=== PATIENT | female | born 1995 | race Caucasian/White ===

== ENCOUNTER 2017-04-21 23:05 | Emergency (ER) | payer OTHER ==
[~2017-04-21] VITALS: Ht 165.1 cm; Wt 54.0 kg
[2017-04-21 23:17] VITALS: BP 123/87; PULSE 76; RESP 14; TEMP 98.1; O2SAT 98
[2017-04-21] MEDS ORDERED: TYLE325T PO (23:28)
[2017-04-21] MEDS ORDERED: SODIUM CHLOR 0.9% 1000 ML INJ 1,000 ML IV ONE (23:45)
[2017-04-21] MEDS ORDERED: SODIUM CHLORIDE 0.9% FLUSH 10 ML FLUSH IVF PRN (23:45)
[2017-04-21] MEDS ORDERED: KETOROLAC TROMETHAMINE 30 MG/ML (IVP) VIAL IV PUSH ONE (23:45)
[2017-04-22 00:08] LABS: AUTOMATED NEUTROPHIL # 4.5 TH/MM3 (1.8-7.7); BASOPHIL # 0.1 TH/MM3 (0-0.2); BASOPHIL % 0.9 % (0.0-2.0); EOSINOPHIL # 0.1 TH/MM3 (0-0.4); EOSINOPHIL % 1.4 % (0.0-4.0); HEMATOCRIT 36.5 % (35.0-46.0); HEMO FLAGS DIFF FINAL; LYMPH % 44.4 % (9.0-44.0); LYMPHOCYTE # 4.3 TH/MM3 (1.0-4.8); MEAN CELL VOLUME 83.8 FL (80.0-100.0); MEAN CORPUSCULAR HEMOGLOBIN 28.5 PG (27.0-34.0); MONO % 5.9 % (0.0-8.0); NEUT % 47.4 % (16.0-70.0); PLATELET COUNT 322 TH/MM3 (150-450); RED BLOOD COUNT 4.35 MIL/MM3 (4.00-5.30); RED CELL DISTRIBUTION WIDTH 13.3 % (11.6-17.2); WHITE BLOOD COUNT 9.6 TH/MM3 (4.0-11.0)
[2017-04-22 00:13] LABS: BLOOD, URINE TRACE (NEG); GLUCOSE,URINE NEG (NEG); KETONE, URINE NEG (NEG); NITRITE,URINE NEG (NEG); PH, URINE 5.5 (5.0-8.5)
[2017-04-22 00:16] LABS: POTASSIUM 3.4 MEQ/L (3.5-5.1)
[2017-04-22 00:19] LABS: BICARBONATE 25.7 MEQ/L (21.0-32.0)
[2017-04-22 00:24] LABS: URINE COLOR YELLOW (YELLW/STRAW)
[2017-04-22 00:25] LABS: SQUAMOUS EPITHELIAL CELL URINE 0-5 /hpf (0-5)
[2017-04-22 00:27] LABS: COMMENT (UR) CULT NOT INDICATED; CULTURE IF INDICATED CULT NOT INDICATED
[2017-04-22 00:30] VITALS: BP 120/76; PULSE 69; RESP 17; O2SAT 100
--- NOTE | 2017-04-22 01:02 | RADHPO ---
EXAM DATE/TIME: 04/22/2017 00:36 [facility] COMPARISON: No previous studies available for comparison. INDICATIONS : Right lower quadrant and flank pain. ORAL CONTRAST: No oral contrast ingested. RADIATION DOSE: 7.37 CTDIvol (mGy) MEDICAL HISTORY : None SURGICAL HISTORY : None. ENCOUNTER: Initial ACUITY: 1 day PAIN SCALE: 7/10 LOCATION: Right lower quadrant TECHNIQUE: Volumetric scanning of the abdomen and pelvis was performed. Using automated exposure control and ad justment of the mA and/or kV according to patient size, radiation dose was kept as low as reasonably achievable to obtain optimal diagnostic quality images. FINDINGS: CT Abdomen: There are tiny stones in both kidneys the largest stones measure 2-3 mm in size. In the right kidney there are 8 may be 9 separate stones and in the left kidney there are 6 separate stones. There is no ureteral stone and there is no hydronephrosis on either side. The liver, spleen, pancrea s, adrenals are unremarkable. There is no evidence for any appreciable pathological adenopathy, free fluid, or bowel obstruction. CT pelvis: There is no evidence for mass, abscess formation, or any significant adenopathy within the pelvis. CONCLUSION: Multiple tiny nonobstructing stones in both kidneys. Sagar Sosa MD on April 22, 2017 at 0:57 Board Certified Radiologist. This report was verified electronically.
[2017-04-22 01:12] VITALS: BP 127/82; PULSE 69; RESP 16; TEMP 99; O2SAT 98
[2017-04-22] MEDS ORDERED: NAPR550 PO (01:12)
[2017-04-22] MEDS ORDERED: ZOFR4TAB3 SL (01:12)
--- NOTE | 2017-04-22 01:22 | PD ---
HPI Chief Complaint: Abdominal Pain Time Seen by Provider: 23:41 Travel History International Travel<30 days: No Contact w/Intl Traveler<30days: No Traveled to known affect area: No History of Present Illness HPI 21-year-old female presents to the emergency department for complaint of right- sided abdominal pain 2 weeks. Patient states pain is been intermittent but fairly consistent. Patient denies fever chills nausea vomiting anorexia or right-sided flank pain. Patient has had left-sided flank pain. Patient has history of kidney stones. Symptoms are somewhat similar but not the exact same. Patient denies dysuria frequency urgency or gross hematuria. No vaginal discharge or abnormal vaginal bleeding. Patient denies . Last period was the past month. Patient has not recently been sexually active. Patient denies any injury or fall. 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 Patient is not been taking medication for symptom relief. Patient rates discomfort as 7/10 in intensity. Pain is not sudden onset but intermittently gradual. Patient is unable to identify exacerbating or alleviating factors. 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) Oral Surgery: Yes (wisdom teeth extraction) Social History Alcohol Use: No Tobacco Use: No Substance Use: No Allergies-Medications (Allergen,Severity, Reaction): Coded Allergies: No Known Allergies (Unverified , 04/21/17) Reported Meds & Prescriptions Reported Meds & Active Scripts Active Anaprox DS (Naproxen Sodium) 550 Mg Tab 550 Mg PO Q12HR Zofran Odt (Ondansetron Odt) 4 Mg Tab 4 Mg SL Q6HR PRN Reported Tylenol (Acetaminophen) 325 Mg Tab 650 Mg PO Q4H PRN Review of Systems Except as stated in HPI: all other systems reviewed are Neg Physical Exam Narrative GENERAL: Well-developed well-nourished female in no acute distress no respiratory distress SKIN: Warm and dry. HEAD: Normocephalic. EYES: No scleral icterus. No injection or drainage. NECK: Supple, trachea midline. No JVD or lymphadenopathy. CARDIOVASCULAR: Regular rate and rhythm without murmurs, gallops, or rubs. RESPIRATORY: Breath sounds equal bilaterally. No accessory muscle use. GASTROINTESTINAL: Abdomen soft, non-tender, nondistended. MUSCULOSKELETAL: No cyanosis, or edema. BACK: Nontender without obvious deformity. No CVA tenderness. Data Data Last Documented VS Vital Signs Date Time Temp Pulse Resp B/P Pulse Ox O2 Delivery O2 Flow Rate FiO2 04/22/17 01:12 99.0 69 16 127/82 98 Room Air Orders Complete Blood Count With Diff (04/21/17 23:41) Basic Metabolic Panel (Bmp) (04/21/17 23:41) Urinalysis - C+S If Indicated (04/21/17 23:41) Ed Urine Pregnancytest Poc (04/21/17 23:41) Iv Access Insert/Monitor (04/21/17 23:41) Sodium Chloride 0.9% Flush (Ns Flush) (04/21/17 23:45) Ketorolac Inj (Toradol Inj) (04/21/17 23:45) Sodium Chlor 0.9% 1000 Ml Inj (Ns 1000 M (04/21/17 23:45) Ct Abd/Pel W/O Iv Contrast (04/22/17 ) Labs Laboratory Tests Test 04/21/17 23:50 White Blood Count 9.6 TH/MM3 Red Blood Count 4.35 MIL/MM3 Hemoglobin 12.4 GM/DL Hematocrit 36.5 % Mean Corpuscular Volume 83.8 FL Mean Corpuscular Hemoglobin 28.5 PG Mean Corpuscular Hemoglobin 34.0 % Concent Red Cell Distribution Width 13.3 % Platelet Count 322 TH/MM3 Mean Platelet Volume 7.5 FL Neutrophils (%) (Auto) 47.4 % Lymphocytes (%) (Auto) 44.4 % Monocytes (%) (Auto) 5.9 % Eosinophils (%) (Auto) 1.4 % Basophils (%) (Auto) 0.9 % Neutrophils # (Auto) 4.5 TH/MM3 Lymphocytes # (Auto) 4.3 TH/MM3 Monocytes # (Auto) 0.6 TH/MM3 Eosinophils # (Auto) 0.1 TH/MM3 Basophils # (Auto) 0.1 TH/MM3 CBC Comment DIFF FINAL Differential Comment Urine Color YELLOW Urine Turbidity SLIGHT Urine pH 5.5 Urine Specific [place] 1.028 Urine Protein TRACE mg/dL Urine Glucose (UA) NEG mg/dL Urine Ketones NEG mg/dL Urine Occult Blood TRACE Urine Nitrite NEG Urine Bilirubin NEG Urine Leukocyte Esterase NEG Urine RBC 4-9 /hpf Urine WBC 3-5 /hpf Urine Squamous Epithelial 0-5 /hpf Cells Microscopic Urinalysis Comment CULT NOT INDICATED Sodium Level 140 MEQ/L Potassium Level 3.4 MEQ/L Chloride Level 107 MEQ/L Carbon Dioxide Level 25.7 MEQ/L Anion Gap 7 MEQ/L Blood Urea Nitrogen 12 MG/DL Creatinine 0.65 MG/DL Estimat Glomerular Filtration 116 ML/MIN Rate Random Glucose 90 MG/DL Calcium Level 9.0 MG/DL [facility] Medical Decision Making Medical Screen Exam Complete: Yes Emergency Medical Condition: Yes Medical Record Reviewed: Yes Interpretation(s) Last Impressions Abdomen/Pelvis CT 04/22/17 0000 Signed Impressions: Service Date/Time: Saturday, April 22, 2017 00:36 - CONCLUSION: Multiple tiny nonobstructing stones in both kidneys. 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 and Toradol 30 mg IV [id number] hCG negative Urinalysis positive red blood cells positive gross blood; CT abdomen and pelvis ordered kidney stone protocol Imaging studies shows bilateral multiple small nonobstructing stones otherwise no acute abnormality identified Patient reporting no pain after Toradol and stable for outpatient management encouraged to follow-up with primary care provider and to follow calcium kidney stone diet Diagnosis Primary Impression: Abdominal pain Qualified Code: R10.30 - Lower abdominal pain Additional Impression: Bilateral nephrolithiasis Referrals: Primary Care Physician call for appointment Patient Instructions: General Instructions Departure Forms: Tests/Procedures, Work Release Special Instructions: no work x 1 day Additional Instructions: Increase fluid hydration Strain urine Follow-up with urology Follow-up with primary care provider Return to the emergency department for any concerns or change in condition Take medication as prescribed as needed for nausea and/or vomiting Take Anaprox DS as needed for pain associated inflammation or [id number] ibuprofen/Advil/Motrin 600 mg as often as every 6-8 hours as needed for pain associated inflammation Take acetaminophen/Tylenol every 4 hours as needed for fever 100.4F or greater No work times one day Med/Other Pt SpecificInfo: Prescription(s) given Scripts Naproxen Sodium DS (Anaprox DS)550 Mg [id number] Mg PO Q12HR #12 TAB Ref 0 Prov:Kassidy Hudson MD 04/22/17 Ondansetron Odt (Zofran Odt)4 Mg Tab4 Mg SL Q6HR PRN (Nausea/Vomiting) #10 TAB Ref 0 Prov:Kassidy Hudson MD 04/22/17 Disposition: 01 DISCHARGE HOME Condition: Stable Kassidy Hudson MD Apr 22, 2017 01:22
== END 2017-04-22 01:35 | disposition home or self-care (01) ==
LOC: PHED 23:05
DX: R10.30 Lower abdominal pain, unspecified (principal); N20.0 Calculus of kidney; Z87.442 Personal history of urinary calculi
CPT/HCPCS: 74176; 80048; 81001; 84703; 85025; 96361; 96374; 99285; J1885; J7030

== ENCOUNTER 2018-02-03 13:53 | Emergency (ER) | payer OTHER ==
[~2018-02-03 13:53] MED LIST: NAPR5TAB5 PO; TYLE325T PO; ZOFR4TAB3 SL
[2018-02-03 14:19] VITALS: BP 142/75; PULSE 124; RESP 16; TEMP 98.6; O2SAT 99
[2018-02-03 16:13] LABS: BASOPHIL # 0.1 TH/MM3 (0-0.2); BASOPHIL % 1.5 % (0.0-2.0); EOSINOPHIL # 0.1 TH/MM3 (0-0.4); EOSINOPHIL % 1.5 % (0.0-4.0); HEMATOCRIT 40.4 % (35.0-46.0); HEMOGLOBIN 13.7 GM/DL (11.6-15.3); LYMPH % 45.7 % (9.0-44.0); MEAN CELL VOLUME 86.6 FL (80.0-100.0); MEAN CORPUSCULAR HEMOGLOBIN 29.5 PG (27.0-34.0); MEAN PLATELET VOLUME 8.2 FL (7.0-11.0); MONO % 6.6 % (0.0-8.0); MONOCYTE # 0.4 TH/MM3 (0-0.9); NEUT % 44.7 % (16.0-70.0); PLATELET COUNT 299 TH/MM3 (150-450); RED BLOOD COUNT 4.66 MIL/MM3 (4.00-5.30); RED CELL DISTRIBUTION WIDTH 13.5 % (11.6-17.2); WHITE BLOOD COUNT 6.7 TH/MM3 (4.0-11.0)
[2018-02-03 16:15] LABS: AMORPHOUS SEDIMENT, URINE RARE; BILIRUBIN, URINE NEG (NEG); BLOOD, URINE LARGE (NEG); GLUCOSE,URINE NEG (NEG); KETONE, URINE NEG (NEG); NITRITE,URINE NEG (NEG); URINE COLOR LIGHT-YELLOW (YELLW/STRAW); URINE LEUKOCYTE ESTERASE NEG (NEG)
[2018-02-03 16:26] LABS: INTERNATIONAL NORMALIZED RATIO 1.1 RATIO; PROTHROMBIN TIME - PATIENT 11.4 SEC (9.8-11.6)
[2018-02-03 16:33] LABS: ALBUMIN 4.3 GM/DL (3.4-5.0); ALT (GPT) 17 U/L (10-53); AST (GOT) 18 U/L (15-37); BICARBONATE 26.6 MEQ/L (21.0-32.0); BLOOD UREA NITROGEN 10 MG/DL (7-18); CALCIUM 8.8 MG/DL (8.5-10.1); CHLORIDE 104 MEQ/L (98-107); CREATININE 0.81 MG/DL (0.50-1.00); GLOMERULAR FILTRATION RATE 89 ML/MIN (>89); GLUCOSE,RANDOM 78 MG/DL (74-106); SODIUM (NA) 137 MEQ/L (136-145)
[2018-02-03 16:49] LABS: ALKALINE PHOSPHATASE 62 U/L (45-117); TOTAL BILIRUBIN ADULT 0.3 MG/DL (0.2-1.0); TOTAL PROTEIN 8.2 GM/DL (6.4-8.2)
--- NOTE | 2018-02-03 16:55 | PD ---
HPI Chief Complaint: Related Problem Time Seen by Provider: 16:51 Travel History International Travel<30 days: No Contact w/Intl Traveler<30days: No Traveled to known affect area: No History of Present Illness HPI 22-year-old female presents to the emergency department with complaint of dark brown vaginal spotting for the past 4 days and onset of passing a large amount of clots and blood approximately 20 minutes ago. Had some abdominal cramping and pain earlier but denies at this time. Last menstrual period December 23, 2017. Denies fever, vomiting. Denies abnormal vaginal discharge, odor, leaking. Denies dysuria. Has not taken any medication or try any treatments to alleviate her symptoms. Symptoms are moderate in severity. No known aggravating or relieving factors. Primary care provider is Dr. Keith in [place]. [facility]ender is [facility] now. No known allergies. Denies significant past medical history. Has no other medical complaints. No other modifying factors or associated signs and symptoms. PFSH Past Medical History Diminished Hearing: No ?: LMP: 12/23/2017 Past Surgical History Eye Surgery: Yes (lazy eye repair at 6 yo) Oral Surgery: Yes (wisdom teeth extraction) Social History Alcohol Use: No Tobacco Use: No Substance Use: No Allergies-Medications (Allergen,Severity, Reaction): Coded Allergies: No Known Allergies (Unverified , 04/21/17) Reported Meds & Prescriptions Reported Meds & Active Scripts Active Tylenol (Acetaminophen) 325 Mg Tab 650 Mg PO Q4H PRN 5 Days Zofran Odt (Ondansetron Odt) 4 Mg Tab 4 Mg SL Q8HR PRN Ibuprofen 800 Mg Tab 800 Mg PO Q6HR PRN Anaprox DS (Naproxen Sodium) 550 Mg Tab 550 Mg PO Q12HR Zofran Odt (Ondansetron Odt) 4 Mg Tab 4 Mg SL Q6HR PRN Review of Systems Except as stated in HPI: all other systems reviewed are Neg Physical Exam Narrative GENERAL: Well-nourished, well-developed feet patient, in no acute distress SKIN: Warm and dry. HEAD: Atraumatic. Normocephalic. EYES: Pupils equal and round. No scleral icterus. No injection or drainage. ENT: Mucosa pink and moist. Airway patent. NECK: Trachea midline. CARDIOVASCULAR: Regular rate and rhythm. No murmur appreciated. RESPIRATORY: No accessory muscle use. Breath sounds clear and equal bilaterally. No retractions or tachypnea. GASTROINTESTINAL: Abdomen soft, non-tender, nondistended. Nonrigid. Nontender. Bowel sounds active 4 quadrants. MUSCULOSKELETAL: No obvious deformities. No clubbing. No cyanosis. No edema. NEUROLOGICAL: Awake and alert. Oriented 3. No obvious cranial nerve deficits. Motor grossly within normal limits. Normal speech. PSYCHIATRIC: Appropriate mood and affect; insight and judgment normal. Data Data Last Documented VS Vital Signs Date Time Temp Pulse Resp B/P (MAP) Pulse Ox O2 Delivery O2 Flow Rate FiO2 02/03/18 19:00 86 16 164/89 (114) 97 02/03/18 14:19 98.6 Orders Orders Complete Blood Count With Diff (02/03/18 14:21) Comprehensive Metabolic Panel (02/03/18 14:21) Complete Rh (02/03/18 14:21) Coag Profile (02/03/18 14:21) Urinalysis - C+S If Indicated (02/03/18 14:21) Ed Urine Pregnancytest Poc (02/03/18 14:21) Beta Hcg (Quant/Titer) (02/03/18 14:21) Us Pelvis (Ques Pr/Ect)W Trans (02/03/18 ) Acetaminophen (Tylenol) (02/03/18 18:30) Ondansetron Odt (Zofran Odt) (02/03/18 18:30) Ed Discharge Order (02/03/18 18:52) Labs Laboratory Tests Test 02/03/18 14:55 White Blood Count 6.7 TH/MM3 Red Blood Count 4.66 MIL/MM3 Hemoglobin 13.7 GM/DL Hematocrit 40.4 % Mean Corpuscular Volume 86.6 FL Mean Corpuscular Hemoglobin 29.5 PG Mean Corpuscular Hemoglobin Concent 34.0 % Red Cell Distribution Width 13.5 % Platelet Count 299 TH/MM3 Mean Platelet Volume 8.2 FL Neutrophils (%) (Auto) 44.7 % Lymphocytes (%) (Auto) 45.7 % Monocytes (%) (Auto) 6.6 % Eosinophils (%) (Auto) 1.5 % Basophils (%) (Auto) 1.5 % Neutrophils # (Auto) 3.0 TH/MM3 Lymphocytes # (Auto) 3.0 TH/MM3 Monocytes # (Auto) 0.4 TH/MM3 Eosinophils # (Auto) 0.1 TH/MM3 Basophils # (Auto) 0.1 TH/MM3 CBC Comment DIFF FINAL Differential Comment Prothrombin Time 11.4 SEC Prothromb Time International Ratio 1.1 RATIO Activated Partial Thromboplast Time 27.3 SEC Urine Color LIGHT-YELLOW Urine Turbidity CLEAR Urine pH 6.0 Urine Specific [place] 1.004 Urine Protein NEG mg/dL Urine Glucose (UA) NEG mg/dL Urine Ketones NEG mg/dL Urine Occult Blood LARGE Urine Nitrite NEG Urine Bilirubin NEG Urine Urobilinogen LESS THAN 2.0 MG/DL Urine Leukocyte Esterase NEG Urine RBC 2 /hpf Urine WBC 1 /hpf Urine Amorphous Sediment RARE Microscopic Urinalysis Comment CULT NOT INDICATED Blood Urea Nitrogen 10 MG/DL Creatinine 0.81 MG/DL Random Glucose 78 MG/DL Total Protein 8.2 GM/DL Albumin 4.3 GM/DL Calcium Level 8.8 MG/DL Alkaline Phosphatase 62 U/L Aspartate Amino Transf (AST/SGOT) 18 U/L Alanine Aminotransferase (ALT/SGPT) 17 U/L Total Bilirubin 0.3 MG/DL Sodium Level 137 MEQ/L Potassium Level 3.2 MEQ/L Chloride Level 104 MEQ/L Carbon Dioxide Level 26.6 MEQ/L Anion Gap 6 MEQ/L Estimat Glomerular Filtration Rate 89 ML/MIN Human Chorionic Gonadotropin, Quant 5766 MIU/ML [facility] Medical Decision Making Medical Screen Exam Complete: Yes Emergency Medical Condition: Yes Medical Record Reviewed: Yes Differential Diagnosis Threatened miscarriage, miscarriage, intrauterine , vaginal bleeding Narrative Course 22-year-old female, approximately 6 weeks , with vaginal bleeding this started today. Has had brown spotting 4 days. Denies abdominal cramping or pain at this time, but had some earlier. CBC, CMP, beta-hCG, urinalysis, coags , type and screen, pelvic ultrasound ordered in triage. 171: CBC unremarkable. Potassium 3.2, otherwise CMP unremarkable. Beta hCG 5766. Urinalysis without signs of infection. Coags unremarkable. Blood type A + and Rh positive. 1844: Pelvic ultrasound concludes: no sonographic evidence of intrauterine . Trace fluid in the endometrial canal. Findings were discussed with the patient. 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 Ibuprofen and Zofran prescribed for home. Dr. Bradshaw prescribed Tylenol for home. Instructed patient to follow up with primary care provider. Patient verbalizes understanding and agreement with treatment plan. Patient is medically cleared and stable for discharge. Discussed reasons to return to the emergency department. Patient agrees with treatment plan. The patients vital signs are stable and the patient is stable for outpatient follow-up and treatment. Patient discharged home, stable and in no acute distress. Diagnosis Primary Impression: Complete miscarriage Referrals: [facility] Primary Care Physician Patient Instructions: General Instructions, Miscarriage (ED) Departure Forms: Tests/Procedures, Work Release Enter return to work date: Feb 05, 2018 Additional Instructions: Zofran as prescribed and as needed for nausea/vomiting Tylenol or ibuprofen as directed and as needed for pain Heating pad and/or ice to affected area to reduce pain Follow-up with surveillance specialist Follow-up with primary care provider Return to the emergency department immediately with worsening of symptoms Med/Other Pt SpecificInfo: Prescription(s) given Scripts Acetaminophen (Tylenol) 325 Mg Tab 650 MG PO Q4H Y for PAIN SCALE 1 TO 7 for 5 Days, #60 TAB 0 Refills Prov: Vikash Bradshaw MD 02/03/18 Ondansetron Odt (Zofran Odt) 4 Mg Tab 4 MG SL Q8HR Y for Nausea/Vomiting, #6 TAB 0 Refills Prov: Allie Lira 02/03/18 Ibuprofen (Ibuprofen) 800 Mg Tab 800 MG PO Q6HR Y for PAIN, #30 TAB 0 Refills Prov: Allie Lira 02/03/18 Disposition: 01 DISCHARGE HOME Condition: Stable Allie Lira Feb 03, 2018 16:55
--- NOTE | 2018-02-03 18:23 | RADRPT ---
EXAM DATE/TIME: 02/03/2018 17:15 [facility] COMPARISON: No previous studies available for comparison. EXTERNAL COMPARISON : [facility], US PELVIS COMPLETE, June 15, 2016 INDICATIONS : Bleeding and pelvic pain with . LAB(S): Beta-hC MEDICAL HISTORY : . Kidney stones. SURGICAL HISTORY : Eye surgery. ENCOUNTER: Subsequent ACUITY: 1 day PAIN SCORE: 3/10 LOCATION: Bilateral pelvis MEASUREMENTS: UTERUS: 8.1 x 3.9 x 4.6 cm ENDOMETRIAL STRIPE: 6 mm RIGHT OVARY: 3.8 x 1.9 x 3.1 cm LEFT OVARY: 3.0 x 1.7 x 2.5 cm FREE FLUID: No CROWN RUMP LENGTH: Non visualized. = WKS DAYS FHR: Non visualized. BPM FINDINGS: Uterus is within normal limits. Endometrial stripe thickness is up to 6 mm. There is no evidence for an intrauterine . No signs of retained products. Trace fluid in endometrial canal. Ovaries unremarkable. No free fluid. CONCLUSION: 1. No sonographic evidence of intrauterine . Trace fluid in the endometrial canal. Sánchez Wilde MD on February 03, 2018 at 18:16 Board Certified Radiologist. This report was verified electronically.
[2018-02-03] MEDS ORDERED: ACETAMINOPHEN 500 MG CPLT PO ONE (18:30)
[2018-02-03] MEDS ORDERED: ONDANSETRON ODT 4 MG TAB PO ONE (18:30)
[2018-02-03] MEDS ORDERED: IBUP1TAB7 PO (18:51)
[2018-02-03] MEDS ORDERED: ZOFR4TAB3 SL (18:51)
[2018-02-03] MEDS ORDERED: TYLE325T PO (18:56)
[2018-02-03 19:00] VITALS: BP 164/89
== END 2018-02-03 19:03 | disposition home or self-care (01) ==
LOC: NED 13:53 → NEPD 19:03
DX: O03.9 Complete or unspecified spontaneous abortion without complication (principal); R10.2 Pelvic and perineal pain
CPT/HCPCS: 76700; 76817; 80053; 81001; 84702; 85025; 85610; 85730; 86901; 99284